=== PATIENT | male | born 1995 | race Two or more races ===

== ENCOUNTER 2024-10-30 21:59 | Emergency (ER) | payer SELFPAY | END 2024-10-31 01:10 | disposition left against medical advice (07) | LOC: ER 22:02 | DX: S69.90XA Unspecified injury of unspecified wrist, hand and finger(s), initial encounter (principal); Z53.21 Procedure and treatment not carried out due to patient leaving prior to being seen by health care provider; X58.XXXA Exposure to other specified factors, initial encounter; Y93.89 Activity, other specified; Y92.89 Other specified places as the place of occurrence of the external cause; Y99.8 Other external cause status ==